=== PATIENT | female | born 1965 | race African-American/Black ===

== ENCOUNTER 2022-02-12 22:36 | Inpatient (IN) | payer OTHER ==
[2022-02-12 22:56] VITALS: BMI 39.9
[2022-02-12] MEDS ORDERED: ACETAMINOPHEN 1000 MG/100 ML BAG IVPB ONE (23:10)
[2022-02-13] MEDS ORDERED: SODIUM CHLORIDE 1,000 ML IV STA (00:54)
[2022-02-13 01:15] LABS: BASO % 0.8 % (0-2.0); HEMATOCRIT 25.6 % (32.4-45.2); LYMPH % 33.7 % (8-40); MCH 25.1 pg (25.7-33.7); MCHC 31.4 g/dl (32.0-36.0); MEAN CELL VOLUME 79.8 fl (80-96); MEAN PLT VOLUME 7.2 fl (7.5-11.1); MONO % 19.5 % (3.8-10.2); PLATELET COUNT 550 10^3/uL (134-434); RBC 3.21 M/mm3 (3.60-5.2); RDW 21.5 % (11.6-15.6); WHITE BLOOD COUNT 5.5 K/mm3 (4.0-10.0)
[2022-02-13 01:32] LABS: CALCIUM 8.4 mg/dL (8.5-10.1)
[2022-02-13 01:33] LABS: ALBUMIN 2.4 g/dl (3.4-5.0); BLOOD UREA NITROGEN 11.8 mg/dL (7-18); MAGNESIUM 1.8 mg/dL (1.8-2.4)
[2022-02-13 01:36] LABS: CREATININE 0.7 mg/dL (0.55-1.3)
[2022-02-13 01:37] LABS: BILIRUBIN,TOTAL 0.2 mg/dL (0.2-1)
[2022-02-13 01:38] LABS: TOT PROT 6.6 g/dl (6.4-8.2)
[2022-02-13 01:39] LABS: N-TERMINAL BNP 480.2 pg/ml (5-125)
[2022-02-13] MEDS ORDERED: ACETAMINOPHEN INJECTION 100 ML IVPB ONE (02:55)
[2022-02-13 03:31] LABS: ANISOCYTOSIS 3+; MACROCYTOSIS 0; ROULEAU 1+; TARGET CELLS 1+
[2022-02-13] MEDS ORDERED: SODIUM CHLORIDE 500 ML IV STA (05:09)
[2022-02-13] MEDS ORDERED: KETOROLAC TROMETHAMINE 15 MG/ML VIAL IVPUSH PRN (08:56)
[2022-02-13] MEDS ORDERED: CEFTRIAXONE 1 GM/50 ML BAG ONE (09:12)
[2022-02-13] MEDS: LACTATED RINGERS SOLUTION 1,000 ML IV SCH (10:15)
[2022-02-13] MEDS: CEFTRIAXONE 1 GM in DEXTROSE 5%-WATER - 50 ML IVPB SCH (10:21)
[2022-02-13] MEDS: ENOXAPARIN NA (PORCINE) 40 MG/0.4 ML DISP.SYRIN SQ SCH (10:37)
[2022-02-14] MEDS: ACETAMINOPHEN 325 MG TABLET (FP) PO PRN ×2 (06:16→22:25)
[2022-02-14] MEDS ORDERED: levoFLOXacin 750 MG TABLET PO SCH (10:00)
[2022-02-14] MEDS: LACTATED RINGERS SOLUTION 1,000 ML IV SCH ×2 (11:08→12:58)
[2022-02-14] MEDS: CEFTRIAXONE 1 GM in DEXTROSE 5%-WATER - 50 ML IVPB SCH ×3 (11:08→13:00)
[2022-02-14] MEDS ORDERED: LACTOBACILLUS ACIDOPHILUS 1 TABLET PO SCH (11:45)
[2022-02-14] MEDS: ENOXAPARIN NA (PORCINE) 40 MG/0.4 ML DISP.SYRIN SQ SCH (13:01)
[2022-02-14 13:51] LABS: GAMMA GLUTAMYL TRANSPEPTIDASE 80 U/L (5-85)
[2022-02-14 14:30] LABS: PH,URINE 5.5 (5.0-8.0); URINE APPEARANCE CLEAR; URINE BILIRUBIN NEGATIVE (NEGATIVE); URINE COLOR YELLOW; URINE GLUCOSE (UA) NEGATIVE (NEGATIVE); URINE KETONE NEGATIVE (NEGATIVE); URINE LEUK ESTERASE NEGATIVE (NEGATIVE); URINE NITRITE NEGATIVE (NEGATIVE); URINE PROTEIN NEGATIVE (NEGATIVE); URINE UROBILINOGEN 0.2 mg/dL (0.2-1.0)
[2022-02-14] MEDS: LACTOBACILLUS ACIDOPHILUS 1 TABLET PO SCH (22:32)
[2022-02-15] MEDS: ENOXAPARIN NA (PORCINE) 40 MG/0.4 ML DISP.SYRIN SQ SCH (10:23)
[2022-02-15] MEDS: LACTATED RINGERS SOLUTION 1,000 ML IV SCH (10:23)
[2022-02-15] MEDS: LACTOBACILLUS ACIDOPHILUS 1 TABLET PO SCH (21:49)
[2022-02-16] MEDS: ACETAMINOPHEN 325 MG TABLET (FP) PO PRN (01:58)
[2022-02-16] MEDS: ENOXAPARIN NA (PORCINE) 40 MG/0.4 ML DISP.SYRIN SQ SCH (10:11)
[2022-02-16 13:19] LABS: HEMATOCRIT 27.4 % (32.4-45.2); HEMOGLOBIN 8.4 GM/dL (10.7-15.3); MCH 23.7 pg (25.7-33.7); MCHC 30.8 g/dl (32.0-36.0); MEAN CELL VOLUME 76.8 fl (80-96); MEAN PLT VOLUME 6.5 fl (7.5-11.1); PLATELET COUNT 573 10^3/uL (134-434); RBC 3.56 M/mm3 (3.60-5.2); RDW 21.3 % (11.6-15.6); WHITE BLOOD COUNT 6.8 K/mm3 (4.0-10.0)
[2022-02-16 14:14] LABS: ALBUMIN 2.6 g/dl (3.4-5.0); CALCIUM 8.7 mg/dL (8.5-10.1); MAGNESIUM 1.8 mg/dL (1.8-2.4)
[2022-02-16 14:16] LABS: BLOOD UREA NITROGEN 5.3 mg/dL (7-18)
[2022-02-16 14:17] LABS: CREATININE 0.7 mg/dL (0.55-1.3)
[2022-02-16 14:18] LABS: PHOSPHOROUS 3.1 mg/dL (2.5-4.9)
[2022-02-16 14:19] LABS: BILIRUBIN,TOTAL 0.2 mg/dL (0.2-1); TOT PROT 6.8 g/dl (6.4-8.2)
[2022-02-16] MEDS: LACTATED RINGERS SOLUTION 1,000 ML IV SCH (16:48)
[2022-02-16] MEDS: LACTOBACILLUS ACIDOPHILUS 1 TABLET PO SCH (22:08)
[2022-02-17] MEDS: ACETAMINOPHEN 325 MG TABLET (FP) PO PRN ×3 (01:30→21:50)
[2022-02-17 21:40] VITALS: BP 134/79; PULSE 85; RESP 18; TEMP 99.3
[2022-02-17] MEDS: LACTOBACILLUS ACIDOPHILUS 1 TABLET PO SCH (21:49)
[2022-02-18] MEDS: ACETAMINOPHEN 325 MG TABLET (FP) PO PRN ×2 (05:16→10:18)
[2022-02-18] MEDS: LACTOBACILLUS ACIDOPHILUS 1 TABLET PO SCH (22:46)
== END 2022-02-19 02:51 | disposition short-term general hospital (02) | DRG 387 ==
LOC: JER 22:36 → JERBED 02-13 04:02 → J8W 02-13 21:24
PROVIDERS: ADMIT Internal Medicine; ATTEND Internal Medicine
DX: K50.10 Crohn's disease of large intestine without complications (principal); M79.7 Fibromyalgia; M06.9 Rheumatoid arthritis, unspecified; K52.9 Noninfective gastroenteritis and colitis, unspecified; D50.9 Iron deficiency anemia, unspecified; R16.0 Hepatomegaly, not elsewhere classified; E66.9 Obesity, unspecified; Z68.39 Body mass index [BMI] 39.0-39.9, adult
CPT/HCPCS: 0241U-QW; 36415; 74176-TC; 76705-TC; 80053; 81003; 82607; 82977; 83690; 83735; 83880; 83993; 84100; 84439; 84443; 84484; 85025; 85027; 86850; 86900; 86901; 87040; 87045; 87046; 87086; 87186; 87324; 87449; 93005; 93010; 97116-GP; 97161-GP; 99285-25; C9803-CS; U0003; U0005